=== PATIENT | male | born 1980 | race Caucasian/White ===

== ENCOUNTER 2017-10-25 08:58 | Inpatient (IN) | payer BC ==
[2017-10-25] MEDS ORDERED: NS 1,000 ML IV ONE ×2 (09:22→11:00)
--- NOTE | 2017-10-25 09:22 | EDPHY ---
H & P Stated Complaint: N/V high BGL, diabetic Source: Patient Exam Limitations: No limitations - Medical/Surgical History Hx Asthma: No Hx Chronic Respiratory Disease: No Hx Diabetes: Yes Hx Cardiac Disease: No Hx Renal Disease: No Hx Cirrhosis: No Hx Alcoholism: No Hx HIV/AIDS: No Hx Splenectomy or Spleen Trauma: No Other PMH: DKA once - Social History Smoking Status: Never smoked Time Seen by Provider: 10/25/17 09:21 HPI/ROS: HPI: This is a 37-year-old male who presents with Chief Complaint: N/V high BGL, diabetic Location: GI Quality: Nausea, vomiting Duration: 1-3 hours prior to arrival+ no vomiting, no hematemesis, no blood in stool, no abdominal bloating, no diarrhea, no back pain, no urinary symptoms, no testicular/groin pain, no indigestion, no chest pain, no shortness of breath , + fatigue Timing: Slowly worsening Severity: [id number] Context: Patient reports that he was diagnosed with insulin-dependent diabetes mellitus in 2016 and takes 25 units of Levemir and lispro sliding scale 48 units before meals. He reports that he forgot his insulin at work on Wednesday and his last dose was Wednesday afternoon of insulin. He thought that he could wait all weekend without having his insulin if he had a carb controlled diet and 8 primarily protein. He reports that he felt okay during the weekend. He woke up this morning approximately 1-3 hours prior to arrival to the emergency room and had sudden onset of nausea, vomiting 2-3 times of stomach contents and stomach cramping that is reported as generalized nonradiating in nature. He reports that he has not had any complications from his diabetes since he was diagnosed. He was initially hospitalized for DKA with new onset IDDM. He denies any fever, urinary symptoms, diarrhea. Patient denies feeling nauseous at this time. Patient denies any polyuria or polydipsia. Modifying Factors: Comment: ROS: see HPI Constitutional: No fever, no chills, no weight loss Eyes: No blurred vision Respiratory: No shortness of breath, no cough Cardiovascular: No chest pain, no palpitations Gastrointestinal: + nausea, + vomiting, no diarrhea, no hematemesis, no blood in stool Genitourinary: No dysuria, no blood in urine Extremities: No myalgias, no edema Neurologic: No weakness, no numbness Skin: No rashes, no petechiae Hematologic: No bruising, no bleeding MEDICAL/SURGICAL/SOCIAL HISTORY: Medical history: Generally healthy. Does not take any regular medications. 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 Never smoked. Family history noncontributory. CONSTITUTIONAL: Nontoxic appearing adult white male, awake and alert, no obvious distress HEENT: Atraumatic and normocephalic, PERRL, EOMI. Nares patent; no rhinorrhea; no nasal mucosal edema. Tympanic membranes clear. Oropharynx clear, no exudate and moist pink mucosa. Airway patent. No lymphadenopathy. No meningismus. Cardiovascular: Normal S1/S2, mild tachycardia, regular rhythm, without murmur rub or gallop. PULMONARY/CHEST: Symmetrical and nontender. Clear to auscultation bilaterally. Good air movement. No accessory muscle usage. ABDOMEN: Soft, nondistended, nontender, no rebound, no guarding, no peritoneal signs, no masses or organomegaly. No CVAT. EXTREMITIES: 2/2 pulses, strength 5/5, no deformities, no clubbing, no cyanosis or edema. NEUROLOGICAL: no focal neuro deficits. GCS 15. SKIN: Warm and dry, no erythema. Multiple tattoos noted on upper torso. no rash. Good capillary refill. (Jerrica Lewis) Constitutional: Initial Vital Signs Temperature (C) 36.7 C 10/25/17 09:03 Heart Rate 114 H 10/25/17 09:03 Respiratory Rate 20 10/25/17 09:03 Blood Pressure 139/80 H 10/25/17 09:03 O2 Sat (%) 97 10/25/17 09:03 O2 Delivery Mode Room Air Allergies/Adverse Reactions: No Known Allergies Allergy (Unverified 10/25/17 09:02) Home Medications: Medication Instructions Recorded Insulin Detemir [Levemir Flextouch] 25 unit SQ BID 10/25/17 Insulin Lispro [HumaLOG LISPRO] 8 unit SC TIDMEAL 10/25/17 Medical Decision Making ED Course/Re-evaluation: I-STAT ordered and shows serum glucose 374, creatinine 1.0, potassium 4.6. 2 L normal saline ordered. 1005: Labs reviewed; bicarb 13, pH 7.13, elevated anion gap consistent with DKA. Creatinine 1.2 DKA protocol started including IV potassium supplementation and IV insulin drip. Vital signs stable and GCS 15 ED decision to consult hospitalist for admission to the ICU. Spoke with Tracey who agrees to admit patient to Dr. Cuevas. This patient was seen under the supervision of my secondary supervising physician. I evaluated care for this patient independently. Discussed this patient with Dr. Alatorre who examined and spoke with patient. (Jerrica Lewis) 10:00 a.m. I did evaluate this patient. He is alert and talkative. I agree with the plan and management thus far as well as admission. (Jozef Alatorre) Differential Diagnosis: Differential diagnosis includes but is not limited to DKA, electrolyte imbalance , hyperglycemia, hyperosmolar hyperglycemic nonketotic state, hyperglycemia, acute kidney injury, dehydration. (Jerrica Lewis) - Data Points Laboratory Results: Laboratory Results 10/25/17 09:15 10/25/17 09:15 Medications Given: Discontinued Medications Sodium Chloride (Ns) 1,000 mls @ 1,000 mls/hr IV EDNOW ONE PRN Reason: Protocol Stop: 10/25/17 10:21 Last Admin: 10/25/17 09:40 Dose: 1,000 mls Insulin Human Regular 100 unit / Miscellaneous Medication 1 ea/ Sodium Chloride 101 mls @ 0 mls/hr IV EDNOW ONE; Per Protocol PRN Reason: Protocol Stop: 10/25/17 10:07 Last Admin: 10/25/17 10:58 Dose: 101 mls Potassium Chloride (Potassium Cl 10 Meq (Premix)) 100 mls @ 100 mls/hr IV Q1H KITTY Stop: 10/25/17 12:29 Last Admin: 10/25/17 13:12 Dose: 100 mls Sodium Chloride (Ns) 1,000 mls @ 1,000 mls/hr IV ONCE ONE Stop: 10/25/17 11:59 Last Admin: 10/25/17 10:53 Dose: 1,000 mls Insulin Human Regular 100 unit (/ Sodium Chloride) 101 mls @ 0 mls/hr IV AD KITTY ; Per Protocol PRN Reason: Protocol Stop: 10/25/17 21:30 Last Admin: 10/25/17 18:13 Dose: 101 mls Dextrose (D10w) 1,000 mls @ 0 mls/hr IV AD KITTY; Per Protocol PRN Reason: Protocol Stop: 10/25/17 21:30 Last Admin: 10/25/17 18:44 Dose: 1,000 mls Sodium Chloride (Ns) 1,000 mls @ 0 mls/hr IV CONT KITTY PRN Reason: As Directed Stop: 04/23/18 13:29 Last Admin: 10/26/17 07:34 Dose: 1,000 mls Potassium Chloride (Potassium Cl 10 Meq (Premix)) 100 mls @ 50 mls/hr IV Q2H KITTY Stop: 10/25/17 19:26 Last Admin: 10/25/17 17:12 Dose: Not Given Potassium Chloride (Potassium Cl 10 Meq (Premix)) 50 mls @ 50 mls/hr IV Q1 KITTY Stop: 10/25/17 17:59 Last Admin: 10/25/17 17:04 Dose: 50 mls Potassium Chloride (Potassium Cl 10 Meq (Premix)) 100 mls @ 50 mls/hr IV Q2H KITTY Stop: 10/26/17 02:13 Last Admin: 10/25/17 23:26 Dose: 100 mls Insulin Glargine (Lantus Syringe) 25 units SC BID KITTY Stop: 04/23/18 20:29 Last Admin: 10/26/17 09:02 Dose: 25 units Insulin Human Lispro (Humalog Lispro) 0 unit SC TIDMEAL KITTY PRN Reason: Protocol Stop: 04/23/18 21:59 Last Admin: 10/26/17 09:10 Dose: Not Given Miscellaneous Information (Message To Rn) 1 ea MISC ONCE ONE Stop: 10/25/17 13:31 Last Admin: 10/25/17 15:27 Dose: 1 ea Point of Care Test Results: Chemistry 10/25/17 09:27 POC Sodium 134 mEq/L L mEq/L (135-145) POC Potassium 4.6 mEq/L mEq/L (3.3-5.0) POC Chloride 102 mEq/L mEq/L (97-110) POC BUN 28 mg/dL H mg/dL (7-23) POC Creatinine 1.0 mg/dL mg/dL (0.7-1.3) POC Glucose 374 mg/dL H mg/dL (70-100) ISTAT H&H 10/25/17 09:27 POC Hgb 17.3 gm/dL gm/dL (13.7-17.5) POC Hct 51 % % (40-51) Departure - Departure Disposition: [facility] Inpatient Acute Clinical Impression: IDDM (insulin dependent diabetes mellitus) DKA (diabetic ketoacidoses) Qualifiers: Diabetes mellitus type: other specified (including ALFONSO) Diabetes mellitus complication detail: without coma Qualified Code(s): E13.10 - Other specified diabetes mellitus with ketoacidosis without coma Condition: Fair
[2017-10-25] MEDS ORDERED: ONDANSETRON 4 MG/2 ML VIAL ONE (09:23)
[2017-10-25 09:37] LABS: PLATELET COUNT 376 10^3/uL (150-400)
[2017-10-25] MEDS ORDERED: INSULIN REGULAR HUMAN 100 UNIT, COSIGN. REQUIRED 1 EA in NS 100 ML IV ONE (10:06)
[2017-10-25] MEDS ORDERED: POTASSIUM Cl (KCl) 100 ML IV SCH ×2 (10:30→15:27)
[2017-10-25] MEDS: POTASSIUM Cl (KCl) 100 ML IV SCH ×4 (10:54→23:26)
[2017-10-25] MEDS: D10W 1,000 ML IV SCH ×2 (12:20→18:44)
[2017-10-25] MEDS: NS 1,000 ML IV SCH ×3 (13:12→19:15)
[2017-10-25] MEDS ORDERED: D50W 25 GM/50 ML SYR IVP PRN ×2 (13:30→20:01)
[2017-10-25] MEDS ORDERED: RN:ENTER POTASSIUM ICU PROTOCOL ON WORKLIST MISC ONE (13:30)
[2017-10-25] MEDS ORDERED: INSULIN REGULAR HUMAN 100 UNIT in NS 100 ML IV SCH (13:30)
[2017-10-25] MEDS ORDERED: D10W 1,000 ML IV PRN (13:30)
--- NOTE | 2017-10-25 13:39 | PDGENHP ---
History and Physical - Chief Complaint N/V - History of Present Illness This is a 37-year-old type I diabeteic male who presents with N/V. He left his insulin at work on Wednesday and has not had any since. He woke up this morning approximately 1-3 hours prior to arrival to the emergency room and had sudden onset of nausea, vomiting 2-3 times of stomach contents and stomach cramping that is reported as generalized nonradiating in nature. He reports that he has not had any complications from his diabetes since he was diagnosed. He was initially hospitalized for DKA with new onset IDDM. He denies any fever, urinary symptoms, diarrhea. Patient denies feeling nauseous at this time. Patient denies any polyuria or polydipsia. In the ER he is found to be in DKA and the DKA protocol has been started He denies any pain, SOB, CP, rhinorrhea, or other precipitation factors. 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 Never smoked. Family history noncontributory. History Information - Allergies/Home Medication List Allergies/Adverse Reactions: No Known Allergies Allergy (Unverified 10/25/17 09:02) Home Medications: Insulin Detemir [Levemir Flextouch] 25 unit SQ BID 10/25/17 [Last Taken AM] Insulin Lispro [HumaLOG LISPRO] 8 unit SC TIDMEAL 10/25/17 [Last Taken 10/25/17 AM] I have personally reviewed and updated: medical history, social history - Social History Smoking Status: Never smoked Review of Systems Review of Systems: ROS: 10pt was reviewed & negative except for what was stated in HPI & below Physical Exam Physical Exam: Temp Pulse Resp BP Pulse Ox 36.4 C 85 16 106/64 100 10/25/17 12:29 10/25/17 13:00 10/25/17 13:00 10/25/17 13:00 10/25/17 13:00 Constitutional: no apparent distress Eyes: EOMI Ears, Nose, Mouth, Throat: dry mucous membranes Cardiovascular: regular rate and rhythym, No edema Respiratory: no respiratory distress, no rales or rhonchi, clear to auscultation Gastrointestinal: normoactive bowel sounds, soft, non-tender abdomen Skin: warm Neurologic: AAOx3 Psychiatric: interacting appropriately Lymph, Heme, Immunologic: No petechiae Lab Data & Imaging Review 10/25/17 09:15 10/25/17 09:15 WBC 12.30 10^3/uL (3.80-9.50) H 10/25/17 09:15 RBC 5.93 10^6/uL (4.40-6.38) 10/25/17 09:15 Hgb 17.2 g/dL (13.7-17.5) 10/25/17 09:15 POC Hgb 17.3 gm/dL (13.7-17.5) 10/25/17 09:27 Hct 49.9 % (40.0-51.0) 10/25/17 09:15 POC Hct 51 % (40-51) 10/25/17 09:27 MCV 84.1 fL (81.5-99.8) 10/25/17 09:15 MCH 29.0 pg (27.9-34.1) 10/25/17 09:15 MCHC 34.5 g/dL (32.4-36.7) 10/25/17 09:15 RDW 12.3 % (11.5-15.2) 10/25/17 09:15 Plt Count 376 10^3/uL (150-400) 10/25/17 09:15 MPV 11.0 fL (8.7-11.7) 10/25/17 09:15 Neut % (Auto) 84.3 % (39.3-74.2) H 10/25/17 09:15 Lymph % (Auto) 10.4 % (15.0-45.0) L 10/25/17 09:15 [place] % (Auto) 3.7 % (4.5-13.0) L 10/25/17 09:15 Eos % (Auto) 0.1 % (0.6-7.6) L 10/25/17 09:15 Baso % (Auto) 0.6 % (0.3-1.7) 10/25/17 09:15 Nucleat RBC Rel Count 0.0 % (0.0-0.2) 10/25/17 09:15 Absolute Neuts (auto) 10.38 10^3/uL (1.70-6.50) H 10/25/17 09:15 Absolute Lymphs (auto) 1.28 10^3/uL (1.00-3.00) 10/25/17 09:15 Absolute Monos (auto) 0.45 10^3/uL (0.30-0.80) 10/25/17 09:15 Absolute Eos (auto) 0.01 10^3/uL (0.03-0.40) L 10/25/17 09:15 Absolute Basos (auto) 0.07 10^3/uL (0.02-0.10) 10/25/17 09:15 Absolute Nucleated RBC 0.00 10^3/uL (0-0.01) 10/25/17 09:15 Immature Gran % 0.9 % (0.0-1.1) 10/25/17 09:15 Immature Gran # 0.11 10^3/uL (0.00-0.10) H 10/25/17 09:15 Puncture Site NONE GIVEN 10/25/17 13:05 Patient Temperature 37.0 DEGREES 10/25/17 13:05 VBG pH 7.29 (7.31-7.42) L 10/25/17 13:05 VBG HCO3 13 mEQ/L (22-26) L 10/25/17 13:05 VBG Total CO2 14 mEq/L (21-27) L 10/25/17 13:05 VBG O2 Saturation 73 % (65-75) 10/25/17 13:05 VBG Base Excess -11.6 mEq/L (-2.5-2.5) L 10/25/17 13:05 Mixed VBG pCO2 29 mmHg (40-44) L 10/25/17 13:05 Mixed VBG pO2 40 mmHG (35-40) 10/25/17 13:05 POC Sodium 134 mEq/L (135-145) L 10/25/17 09:27 Sodium 134 mEq/L (135-145) L 10/25/17 09:15 POC Potassium 4.6 mEq/L (3.3-5.0) 10/25/17 09:27 Potassium 4.9 mEq/L (3.3-5.0) 10/25/17 09:15 POC Chloride 102 mEq/L (97-110) 10/25/17 09:27 Chloride 98 mEq/L (97-110) 10/25/17 09:15 Carbon Dioxide 11 mEq/l (22-31) L 10/25/17 09:15 Anion Gap 25 mEq/L (8-16) H 10/25/17 09:15 POC BUN 28 mg/dL (7-23) H 10/25/17 09:27 BUN 26 mg/dL (7-23) H 10/25/17 09:15 Creatinine 1.2 mg/dL (0.7-1.3) 10/25/17 09:15 POC Creatinine 1.0 mg/dL (0.7-1.3) 10/25/17 09:27 Estimated GFR > 60 10/25/17 09:15 Glucose 377 mg/dL (70-100) H 10/25/17 09:15 POC Glucose 374 mg/dL (70-100) H 10/25/17 09:27 Calcium 10.1 mg/dL (8.5-10.4) 10/25/17 09:15 Phosphorus 4.1 mg/dL (2.5-4.5) 10/25/17 09:15 Magnesium 2.0 mg/dL (1.6-2.3) 10/25/17 09:15 Beta-Hydroxybutyrate 6.63 mmol/L (0.02-0.27) H 10/25/17 09:15 Specimen Hemolysis Cancelled 10/25/17 09:15 Assessment & Plan Assessment: #DKA (diabetic ketoacidoses) #IDDM (insulin dependent diabetes mellitus) #N/V #Dehydration Admit to ICU and cont DKA protocol cont IVF electrolyte replacement total critical time spent on this patient with DKA is 45 minutes
[2017-10-25] MEDS ORDERED: ACETAMINOPHEN 325 MG TAB PO PRN (13:40)
[2017-10-25] MEDS ORDERED: ONDANSETRON DISINTEGRATING 4 MG TAB PO PRN (13:40)
[2017-10-25] MEDS ORDERED: ONDANSETRON 4 MG/2 ML VIAL IVP PRN (13:40)
[2017-10-25] MEDS ORDERED: PROTOCOL POTASSIUM 1 DOSE MISC PRN (14:15)
[2017-10-25] MEDS ORDERED: POTASSIUM Cl (KCl) 10 MEQ/50 ML BAG IV ONE (15:30)
[2017-10-25] MEDS: POTASSIUM Cl (KCl) 50 ML IV SCH ×2 (15:30→17:04)
[2017-10-25] MEDS ORDERED: D10W 1,000 ML IV SCH (15:30)
[2017-10-25] MEDS ORDERED: NS 1,000 ML IV SCH (16:00)
--- NOTE | 2017-10-25 16:57 | PDMN ---
Medical Necessity Medical necessity: Pt meets inpt criteria per MD order and MCG M-130, Diabetes. Est LOS>2MN for treatment of DKA, IDDM, N/V, 1+ ketones, urine clucose 3+, pH 7.13, Bicarb 11, leukocytosis, ICU monitoring, dehydration, IVF, DKA protocol, med nec for ongoing med management of DKA.
[2017-10-25] MEDS: INSULIN GLARGINE 100 UNITS/ML UNIT SC SCH (20:30)
[2017-10-25] MEDS: INSULIN LISPRO 100 UNIT/ML SC SCH (22:01)
[2017-10-25] MEDS ORDERED: POTASSIUM Cl (KCl) 50 ML IV ONE (22:04)
[2017-10-26 06:23] LABS: PLATELET COUNT 219 10^3/uL (150-400)
[2017-10-26] MEDS: NS 1,000 ML IV SCH (07:34)
[2017-10-26 08:13] VITALS: BP 113/96
[2017-10-26] MEDS: INSULIN GLARGINE 100 UNITS/ML UNIT SC SCH (09:02)
[2017-10-26] MEDS: INSULIN LISPRO 100 UNIT/ML SC SCH (09:10)
--- NOTE | 2017-10-26 09:41 | HOSPPROG ---
Hospitalist Progress Note Assessment/Plan: 37 yo M w dm1 here w mild DKA gap closed home today see dc summary Subjective: gap closed. sugars OK. anxious for dc Objective: Vital Signs Temp Pulse Resp BP Pulse Ox 35.7 C L 71 14 113/96 H 98 10/26/17 08:00 10/26/17 08:00 10/26/17 08:00 10/26/17 08:00 10/26/17 08:00 Laboratory Results 10/26/17 06:00 10/26/17 06:00 10/25/17 10/26/17 10/27/17 05:59 05:59 05:59 Intake Total 8069.8 550 Output Total 2780 400 Balance 5289.8 150 - Physical Exam Constitutional: no apparent distress, appears nourished Eyes: PERRL, anicteric sclera Ears, Nose, Mouth, Throat: moist mucous membranes, hearing normal Cardiovascular: regular rate and rhythym, no murmur, rub, or gallop Respiratory: no respiratory distress, no rales or rhonchi Gastrointestinal: normoactive bowel sounds, soft, non-tender abdomen Genitourinary: No black in urethra Skin: warm, normal color Musculoskeletal: full muscle strength, no muscle tenderness Neurologic: AAOx3 ICD10 Worksheet Patient Problems: Problems Problem Status Onset DKA (diabetic ketoacidoses) Acute IDDM (insulin dependent diabetes mellitus) Acute
--- NOTE | 2017-10-26 10:12 | GDS ---
[f rep st] DISCHARGE SUMMARY DISCHARGE DIAGNOSES: 1. Mild diabetic ketoacidosis. 2. Type 1 diabetes, with the last hemoglobin A1c of 9.9. Please see the admission history and physical by Dr. Christopher Cuevas. The patient presented with na usea and vomiting. He had elevated blood sugars and an increased anion gap in the setting of not ida ing insulin as he left it in his truck. He is here from [place] working. The patient received an insulin drip for a period of time and then was started on long-acting insulin last night. His gap remains closed this morning. He is eating and feeling well. He is discharged home on an unchanged insulin regimen. /[id number]/MODL
== END 2017-10-26 10:10 | disposition home or self-care (01) | DRG 639 ==
LOC: F2N 11:51
PROVIDERS: ADMIT Family Medicine; ATTEND Family Medicine
DX: E10.10 Type 1 diabetes mellitus with ketoacidosis without coma (principal); E86.9 Volume depletion, unspecified
CPT/HCPCS: 82435-PO; 82565-PO; 82947-PO; 84132-PO; 84295-PO; 84520-PO; 85014-PO; 96365; J1815; J2405; J3480